=== PATIENT | male | born 1955 | race Caucasian/White ===

== ENCOUNTER 2020-04-17 08:15 | Day surgery (SDC) | payer MEDICARE, OTHER ==
[~2020-04-17] VITALS: Ht 175.3 cm; Wt 92.5 kg
[~2020-04-17 08:15] MED LIST: ASPI325 PO; ASPIR 8181 M1 PO; CETI5 PO; EXTRA STRENGTH500 MG PO; HYDR1TAB94 PO; MELA3 PO; Multiple Vitam1 EAC1 PO; NASACORT10.8 ML; Omeprazole20 M1 PO
[2020-04-17] MEDS ORDERED: METF500 (09:01)
--- NOTE | 2020-04-17 09:56 | NUR ---
04/17/20 0956 Soren Mooney CASE ENDED AFTER DR. JONES UNABLE TO VISUALIZED EPIGLOTTIS.
== END 2020-04-17 11:00 | disposition home or self-care (01) ==
LOC: ORSCSDS 08:15
PROVIDERS: Otolaryngology
PROC: 0CJS8ZZ Inspection of Larynx, Via Natural or Artificial Opening Endoscopic (ICD-10-PCS; principal; 2020-04-17 09:30)
DX: J38.1 Polyp of vocal cord and larynx (principal); R49.0 Dysphonia; E11.9 Type 2 diabetes mellitus without complications; K21.9 Gastro-esophageal reflux disease without esophagitis; Z79.84 Long term (current) use of oral hypoglycemic drugs; Z79.899 Other long term (current) drug therapy; Z79.82 Long term (current) use of aspirin
CPT/HCPCS: 82947; A9270; J0171; J1100; J2250; J2704; J2710; J3010; J7120

== ENCOUNTER 2021-05-01 09:09 | Day surgery (SDC) | payer MEDICARE, OTHER ==
[~2021-05-01] VITALS: Ht 175.3 cm; Wt 84.7 kg
[~2021-05-01 09:09] MED LIST changes: +METF500; +PANT20
[2021-05-01] MEDS ORDERED: PHAZYME250 MG (09:50)
== END 2021-05-01 11:00 | disposition home or self-care (01) ==
LOC: ORSCSDS 09:09
PROVIDERS: Internal Medicine Gastroenterology
PROC: 0DJ08ZZ Inspection of Upper Intestinal Tract, Via Natural or Artificial Opening Endoscopic (ICD-10-PCS; principal; 2021-05-01 10:30)
DX: K21.9 Gastro-esophageal reflux disease without esophagitis (principal); K44.9 Diaphragmatic hernia without obstruction or gangrene; J45.909 Unspecified asthma, uncomplicated; Z79.82 Long term (current) use of aspirin; Z79.899 Other long term (current) drug therapy
CPT/HCPCS: 82947; J2704; J7120

== ENCOUNTER 2024-02-27 06:11 | Day surgery (SDC) | payer MEDICARE, OTHER ==
[2024-02-27] VITALS (9 sets, daily range): BP systolic 110–130; BP diastolic 72–83
[~2024-02-27] VITALS: Ht 175.3 cm; Wt 88.4 kg
[~2024-02-27 06:11] MED LIST changes: +CORTISONE60 GM; +FAMO10; +MELATONIN5 M1 PO; +METAMUCIL POWD798 GM; -METF500; +METF500 PO; +MULVITA; +PHAZYME250 MG PO; +TRAZ50 PO
[2024-02-27] MEDS ORDERED: FentaNYL Citrate 50 MCG/ML 2 ML Injection ONE ×2 (06:12→07:42)
[2024-02-27] MEDS ORDERED: Dexamethasone Sod Phos 10 MG/ML 1ML VIAL ONE (06:12)
[2024-02-27] MEDS ORDERED: Rocuronium Bromide 10 MG/ML 5ML Injection IV ONE (06:12)
[2024-02-27] MEDS ORDERED: Ondansetron HCl 2 MG / ML 2ML Vial ONE (06:12)
[2024-02-27] MEDS ORDERED: propofoL 40 ML IV ONE (06:12)
[2024-02-27] MEDS ORDERED: Lactated Ringer's 1,000 ML IV SCH (06:25)
[2024-02-27] MEDS ORDERED: CeFAZolin Sodium 2,000 MG in NS 100 ML IV SCH (06:25)
[2024-02-27] MEDS ORDERED: Midazolam HCl 1MG / ML 2ML Vial IV STA (06:36)
[2024-02-27] MEDS ORDERED: Metoclopramide HCl 5MG / ML 2ML Vial IV PRN (06:40)
[2024-02-27] MEDS ORDERED: Citric Acid/Sodium Citrate 30 ML BTL PO ONE (06:40)
[2024-02-27] MEDS ORDERED: Lidocaine HCl 1% 5 ML SYR INJ ONE (06:40)
[2024-02-27] MEDS ORDERED: FentaNYL Citrate 50 MCG/ML 2 ML Injection IV PRN ×3 (06:45)
[2024-02-27] MEDS ORDERED: Albuterol 2.5 MG/3 ML VIAL INH PRN (06:45)
[2024-02-27] MEDS ORDERED: Atropine Sulfate 0.1 MG/ML 10ML SYR IV PRN (06:45)
[2024-02-27] MEDS ORDERED: Ondansetron HCl 2 MG / ML 2ML Vial IV PRN (06:45)
[2024-02-27] MEDS ORDERED: Bupivacaine 0.5% HCl 5 MG/ML 30MLVIAL ONE (06:55)
[2024-02-27] MEDS ORDERED: Albuterol 2.5 MG/3 ML VIAL INH SCH (07:00)
--- NOTE | 2024-02-27 07:04 | NUR ---
History, Chart, Medications and Allergies reviewed before start of procedure. Pre-Op teaching done. Pt verbalizes understanding. Patient confirms NPO status and agrees with scheduled surgery. PT BELONGINGS BAG PLACED UNDER GURNEY. PT AND DAUGHTER AT BS.
[2024-02-27] MEDS ORDERED: Sugammadex Sodium 200 MG/2ML SDV (100 MG/ML) ONE (07:05)
[2024-02-27] MEDS ORDERED: CeFAZolin Sodium 2,000 MG VIAL ONE (07:09)
[2024-02-27] MEDS ORDERED: Phenylephrine HCl 10mg/ml 1 ml Vial ONE (07:40)
[2024-02-27] MEDS ORDERED: Ketorolac Tromethamine 30mg Vial ONE (08:00)
[2024-02-27] MEDS ORDERED: HYDROcodone 5-APAP 325 TAB PO PRN (08:35)
--- NOTE | 2024-02-27 10:11 | NUR ---
DISCHARGE NOTE PT A&OX4, BREATHING RA, TOLERATING PO INTAKE, PO PAIN MEDICATION GIVEN PER MD ORDERS, PT HAS NO OTHER COMPLAINTS. Patient up to Ambulate independently. Gait steady. Discharge instructions reviewed with patient. Patient verbalizes understanding. Copy given to patient to take home. Dressing to procedure site clean, dry, intact with no visible drainage, swelling, erythema or bruising noted. Discharged via wheelchair to private car for ride home.
== END 2024-02-27 09:48 | disposition home or self-care (01) ==
LOC: ORSCMMR 06:11 → ORD 07:30 → ORSCMMR 09:48
PROVIDERS: Surgery
PROC: 0WUF0JZ Supplement Abdominal Wall with Synthetic Substitute, Open Approach (ICD-10-PCS; principal; 2024-02-27 07:30)
DX: K42.9 Umbilical hernia without obstruction or gangrene (principal); I10 Essential (primary) hypertension; E78.5 Hyperlipidemia, unspecified; K21.9 Gastro-esophageal reflux disease without esophagitis; E11.9 Type 2 diabetes mellitus without complications; Z79.84 Long term (current) use of oral hypoglycemic drugs; Z79.899 Other long term (current) drug therapy; G25.0 Essential tremor
CPT/HCPCS: 82947; A9270; C1781; J0690; J1100; J1885; J2250; J2371; J2405; J2704; J3010; J7120

== ENCOUNTER 2024-03-09 09:30 | Day surgery (SDC) | payer MEDICARE, OTHER ==
[~2024-03-09] VITALS: Ht 175.3 cm; Wt 85.6 kg
[~2024-03-09 09:30] MED LIST changes: +Lactated Ringer's 1,000 ML IV ONE; +propofoL 50 ML IV ONE
[2024-03-09] MEDS ORDERED: IBUPROFEN200 M1 (10:20)
[2024-03-09] MEDS ORDERED: Lactated Ringer's 1,000 ML IV ONE (11:12)
--- NOTE | 2024-03-09 11:29 | NUR ---
03/09/24 1129 Clarisse Doty C/O INDIGESTION UPON GOING INTO ENDO ROOM, DR. CARTER AWARE, NO ORDERS. OK TO PROCEED.
[2024-03-09 12:24] VITALS: BP 132/80
== END 2024-03-09 12:30 | disposition home or self-care (01) ==
LOC: ORSCSDS 09:30
DX: Z12.11 Encounter for screening for malignant neoplasm of colon (principal); D12.0 Benign neoplasm of cecum; D12.3 Benign neoplasm of transverse colon; K63.5 Polyp of colon; K62.1 Rectal polyp; R19.5 Other fecal abnormalities
CPT/HCPCS: 82947; 88305; J2704; J7120